=== PATIENT | male | born 1935 | race Caucasian/White ===

== ENCOUNTER → 2016-12-11 | Outpatient (CLI) | payer MEDICARE ==
[~2016-12-11] MED LIST: ALPRAZOLAM PO; ASPIRIN PO; ASPIRIN81 M2 PO; ATORVASTATIN CA10 MG PO; BENICAR PO; CATAPRES0.3 MG PO; CLONIDINE TOP; DIOVAN PO; FOLIC ACID PO; IMDUR PO; IPRAT-ALBUT 0.5-3 ML INH; ISOSORBIDE MONO60 M1 PO; KEFLEX PO; LIPITOR PO; LISINOPRIL PO; METOPROLOL TAR25 MG PO; METOPROLOL-HCTZ1 TA3 PO; NIACIN PO; NITROGYLCERIN SUBLINGUAL; NORVASC10 MG PO; PLAVIX PO; PREVACID PO; PROTONIX20 MG PO; PROZAC PO; VIT B-12 PO; VITAMIN D1000 UNIT PO; XARELTO20 MG PO; ZOFRAN ODT4 MG PO
--- NOTE | ~2016-12-11 | CT3 ---
[facility] A Service of [facility] & [facility] RADIOLOGY TEXT RESULTS PATIENT: ADAL SHAIKH JR LOCATION: [facility] : 34 UNIT #: [id number] AGE: [address]: Lake Acevedo MD SEX: M ORDER DR: [id number] [place] [id number] O MR#: [id number] Acc #: [id number] NAME: ADAL SHAIKH JR : 1935 SEX: M STUDY DATE/TIME: 12/11/2016 10:11 UNIT: [facility] ROOM: STUDY DESCRIPTION: CT Abd and Pelv WWo Cont Attending Physician: Lake Acevedo M.D. Referring Physician: Lake Acevedo M.D. Ordering Physician: Lake Acevedo M.D. Primary Care Physician: Rashid Henriquez M.D. MEDICAL IMAGING REPORT This report is preliminary unless electronic signature is present. EXAM CT abdomen and pelvis without and with contrast INDICATIONS Bladder mass on cystoscopy 1 month ago. Bilateral pelvic pain. Difficulty urinating since August 2016. PROCEDURE Unenhanced CT of the abdomen and pelvis. Postcontrast CT of the abdomen and pelvis with multiphase acquisition through the kidneys, including 5-minute delayed imaging of the abdomen and pelvis. This CT exam was performed with one or more of the following radiation dose reduction techniques: automatic exposure control, adjustment of mA and/or kV according to patient size, and iterative reconstruction. COMPARISON 08/08/2016 FINDINGS Abdomen without contrast: Included lung bases predominately clear. No radiodense gallstones. There is a 2 mm nonobstructing calculus in the right kidney. Pelvis without contrast: There is a 6 mm calculus at the right UVJ. No significant hydronephrosis. Abdomen with contrast: The kidneys enhance symmetrically. There are bilateral renal cysts, largest is in the right kidney and measures 2.5 cm. No enhancing renal mass. There is a small amount of contrast in the distal right ureter and the right ureter appears to be patent. No abnormal filling defect is seen in the left ureter. STS. [facility] A Service of [facility] & [facility] RADIOLOGY TEXT RESULTS PATIENT: ADAL SHAIKH JR LOCATION: [facility] : 34 UNIT #: [id number] AGE: [address]: Lake Acevedo MD SEX: M ORDER DR: The liver, spleen, adrenal glands, pancreas and gallbladder unremarkable. The bowel loops are nondilated. Pelvis with contrast: The bladder is decompressed. Circumferential bladder wall thickening may be related to decompression. No definite bladder mass seen. No pelvic adenopathy. No aggressive appearing bone lesion. IMPRESSION 1. The bladder is decompressed. Bladder wall thickening may be related to under distension. Cannot exclude cystitis or even malignancy given the provided history, but no discrete bladder mass is seen on this study. 2. 6 mm calculus at the right UVJ. No significant hydronephrosis. The bladder calculus is very similar to 08/08/2016 study. 3. Bilateral renal cysts. Dictated by... Kimani Sargent M.D. THIS IS AN ELECTRONICALLY VERIFIED REPORT Kimani Sargent M.D. at 12/12/2016 7:19 AM EED/rodolfo TD: 12/11/2016 23:10 JOB #: [id number] MEDICAL IMAGING REPORT Page 1 of 1
[2016-12-11 10:20] LABS: POC - CREATININE 1.14 mg/dL (0.64-1.27); POC - GFR >60.0 mL/min (>60)
== END | disposition home or self-care (01) ==
LOC: SCT 10:01
PROVIDERS: Urology
DX: N32.9 Bladder disorder, unspecified (principal); N20.1 Calculus of ureter; N21.0 Calculus in bladder; N28.1 Cyst of kidney, acquired
CPT/HCPCS: 74178; 82565; Q9967

== ENCOUNTER → 2016-12-17 | Day surgery (SDC) | payer MEDICARE ==
--- NOTE | ~2016-12-17 | OR ---
Unit #: [id number] #: [id number] Patient: ADAL SHAIKH JR [id number] [address] [address] [id number] O MR#: [id number] NAME: ADAL SHAIKH JR ROOM: Date of Procedure: 12/17/2016 Admission Date: 12/17/2016 Surgeon: Lake Acevedo M.D. : 1935 Attending Physician: Lake Acevedo M.D. Primary Care Physician: Rashid Henriquez M.D. OPERATIVE REPORT PREOPERATIVE DIAGNOSES Right ureteral stone, renal colic, history of bladder cancer. POSTOPERATIVE DIAGNOSES Right ureteral stone, renal colic, and urethral stricture. PROCEDURES PERFORMED Cystoscopy, right ureteroscopy, ureteral dilation, laser lithotripsy, basket extraction, stent placement without tether. DESCRIPTION OF PROCEDURE After informed consent, the patient was taken to the operating room, placed under general anesthetic, positioned in lithotomy. His penis and perineum were prepped and draped in the usual sterile fashion. Cystoscopy was performed and I discovered a bulbar urethral stricture. The male urethral sounds were used to gently dilate his urethra. The stricture was opened very gently with inspection of the bladder. There were no tumors, no stones, or diverticula. The entire bladder was inspected. He had normal-appearing left and right ureteral orifices. On fluoroscopy, the stone could be seen in the distal ureter. A Sensor wire was placed in the distal ureter under fluoroscopy beyond the stone. The ureteral dilating catheters were used to gently dilate the ureter. Rigid ureteroscopy was performed. The stone was encountered in the distal ureter. A laser was used and the stone was broken up into smaller pieces. A basket was used and the pieces were extracted and sent to pathology. Repeat inspection of the ureter showed no other stones. Repeat inspection of bladder showed no injury to the bladder or tumors. Repeat inspection of the urethra showed an open strictured area with no active bleeding. A 5 x 26 stent was placed under fluoroscopy with the tether removed. There was good coil in the bladder and collecting system. The plan is to send him home and return to see me as an outpatient for cystoscopy and stent removal. He tolerated the procedure well. He will not need another cystoscopy for his history of bladder cancer until maybe 04/2017. He will be discharged home and return to see me as an outpatient for the cystoscopy and stent removal. Dictated by... Haseeb Miles/[place] Unit #: [id number] #: [id number] Patient: ADAL SHAIKH JR TD: 12/18/2016 00:01 JOB #: [id number] OPERATIVE REPORT Page 1 of 1 X Lake Acevedo MD X PROCEDURE OPERATIVE NOTE
--- NOTE | ~2016-12-17 | EKG ---
PATIENT: ADAL SHAIKH UNIT #: [id number] Ventricular Rate: 56 BPM Atrial Rate: 56 BPM P-R Interval: 234 ms QRS Duration: 88 ms Q-T Interval: 418 ms QTC Calculation(Bezet): 403 ms P Thornwood: 52 degrees Calculated R Thornwood: -21 degrees Calculated T Thornwood: 47 degrees Diagnosis Line: Sinus bradycardia with 1st degree A-V block with Diagnosis Line: occasional Premature ventricular complexes Diagnosis Line: Otherwise normal ECG Diagnosis Line: When compared with ECG of 05-OCT-2016 12:07, Diagnosis Line: Premature ventricular complexes are now Present Diagnosis Line: Confirmed by SONIA BOURGEOIS MD ([id number]) on 12/18/2016 Diagnosis Line: 5:42:44 AM INTERPRETING MD: BK PHAN
[2016-12-17 12:45] LABS: BASOPHIL% 0.2 % (0-2.5); DIFF IND NO; EOSINOPHIL# 0.2 X10e3 (0-0.7); EOSINOPHIL% 1.6 % (0.0-7.0); HEMATOCRIT 43.3 % (38.0-50.0); HEMOGLOBIN 14.2 gm/dL (13.0-16.0); LYMPHOCYTE# 2.3 X10e3 (1.0-3.5); LYMPHOCYTE% 20.8 % (17.0-45.0); MEAN CELL VOLUME 96.5 FL (83-96); MEAN CORPUSCULAR HEMOGLOBIN 31.7 PG (28-34); MEAN CORPUSCULAR HGB CONC 32.8 g/dL (30-36); MEAN PLATELET VOLUME 8.1 FL (6.5-11.5); MONOCYTE# 0.9 X10e3 (0-1.0); MONOCYTE% 8.1 % (3.0-12.0); NEUTROPHIL# 7.6 X10e3 (1.5-7.1); NEUTROPHIL% 69.3 % (40-75); PLATELET COUNT 249 X10e3 (140-420); RED BLOOD COUNT 4.49 X10e (3.90-5.60); RED CELL DISTRIBUTION WIDTH 15.8 % (11.0-15.5); WHITE BLOOD COUNT 10.9 X10e3 (4.0-10.5)
[2016-12-17 13:07] LABS: BUN/CREATININE RATIO 14.16; CALCIUM SERUM 8.9 mg/dL (8.4-10.2); CREATININE SERUM 1.2 mg/dL (0.6-1.4); POTASSIUM 4.4 mmol/L (3.5-5.1)
== END | disposition home or self-care (01) ==
LOC: CSUR 11:46
PROVIDERS: Urology
DX: N20.1 Calculus of ureter (principal); N35.9 Urethral stricture, unspecified; Z85.51 Personal history of malignant neoplasm of bladder; I25.10 Atherosclerotic heart disease of native coronary artery without angina pectoris; I25.2 Old myocardial infarction; Z95.5 Presence of coronary angioplasty implant and graft; I10 Essential (primary) hypertension; J44.9 Chronic obstructive pulmonary disease, unspecified; F17.200 Nicotine dependence, unspecified, uncomplicated; Z99.81 Dependence on supplemental oxygen
CPT/HCPCS: 80048; 82365; 85025; 88300; 93005; C1758; C2617; J0690; J2405; J3010

== ENCOUNTER → 2017-01-25 | Outpatient (CLI) | payer MEDICARE ==
--- NOTE | ~2017-01-25 | US77 ---
[facility] A Service of [facility] & [facility] RADIOLOGY TEXT RESULTS PATIENT: ADAL SHAIKH JR LOCATION: [facility] : 33 UNIT #: [id number] AGE: [address]: Lake Acevedo MD SEX: M ORDER DR: [id number] [address] [address] [id number] O MR#: [id number] Acc #: [id number] NAME: ADAL SHAIKH : 1935 SEX: M STUDY DATE/TIME: 01/25/2017 8:07 UNIT: [facility] ROOM: STUDY DESCRIPTION: US Kidney Bilateral Complete Attending Physician: Lake Acevedo M.D. Referring Physician: Lake Acevedo M.D. Ordering Physician: Lake Acevedo M.D. Primary Care Physician: Rashid Henriquez M.D. MEDICAL IMAGING REPORT This report is preliminary unless electronic signature is present. EXAM Bilateral renal ultrasound 01/25/2017 HISTORY Bladder cancer. Patient states flank pain for 1 year. Referring physician's history also states urethral stricture. COMPARISON Bilateral renal ultrasound 04/09/2013. CT abdomen and pelvis without contrast 08/08/2016. FINDINGS The right kidney measures 10.5 x 5.4 x 6.7 cm. A cyst in the anterior right mid to upper renal pole measures 3.0 x 1.9 x 1.9 cm. The left kidney measures 11.0 x 4.8 x 4.7 cm. Both kidneys demonstrate cortical thinning and increased cortical echotexture suggesting changes of chronic medical renal disease, and these findings appear to have progressed since the 04/09/2013 examination. No suspicious solid renal lesion is seen on either side. No shadowing renal stone or hydronephrosis is evident on either side. Echogenic material is seen within the urinary bladder along its inferior margin measuring nearly 4.8 x 1.7 cm. This echogenic material demonstrates no discernible color flow. It is unclear whether this could represent a solid urothelial mass or even a blood clot. IMPRESSION 1. Abnormal appearance of the urinary bladder. There is echogenic [facility] A Service of [facility] & [facility] RADIOLOGY TEXT RESULTS PATIENT: ADAL SHAIKH JR LOCATION: [facility] : 34 UNIT #: [id number] AGE: [address]: Lake Acevedo MD SEX: M ORDER DR: material at the base of the urinary bladder. It is unclear whether this could represent urothelial malignancy (as suggested on the provided history), blood or hematoma within the urinary bladder lumen, or, less likely, nodular prostatic enlargement protruding into the bladder. Correlation with urine cytology and potentially cystoscopy would be recommended. 2. No hydronephrosis on either side. 3. Bilateral renal cortical thinning and increased cortical echotexture suggesting features of chronic medical renal disease, which appears to have progressed since the 2013 ultrasound. 4. Benign right renal cyst measuring maximal 3.0 cm compared to 2.1 cm on 04/09/2013. Dictated by... Sigrid Simmons M.D. THIS IS AN ELECTRONICALLY VERIFIED REPORT Sigrid Simmons M.D. at 01/29/2017 8:40 AM Paco TD: 01/25/2017 16:35 JOB #: [id number] MEDICAL IMAGING REPORT Page 1 of 1
== END | disposition home or self-care (01) ==
LOC: SGUS 07:38
DX: N20.1 Calculus of ureter (principal); N32.9 Bladder disorder, unspecified; N35.9 Urethral stricture, unspecified; N28.1 Cyst of kidney, acquired; R93.421 Abnormal radiologic findings on diagnostic imaging of right kidney; R93.422 Abnormal radiologic findings on diagnostic imaging of left kidney
CPT/HCPCS: 76775

== ENCOUNTER → 2017-05-16 | Outpatient (CLI) | payer MEDICARE ==
--- NOTE | ~2017-05-16 | US85 ---
[facility] A Service of [facility] RADIOLOGY TEXT RESULTS PATIENT: ADAL SHAIKH JR LOCATION: [facility] : 33 UNIT #: [id number] AGE: [address]: Rashid Henriquez MD SEX: M ORDER DR: [id number] [place] [id number] O MR#: [id number] Acc #: [id number] NAME: ADAL SHAIKH JR : 1935 SEX: M STUDY DATE/TIME: 05/16/2017 11:03 UNIT: [facility] ROOM: STUDY DESCRIPTION: [employer] St[employer] Attending Physician: Rashid Henriquez M.D. Referring Physician: Rashid Henriquez M.D. Ordering Physician: Rashid Henriquez M.D. Primary Care Physician: Rashid Henriquez M.D. MEDICAL IMAGING REPORT This report is preliminary unless electronic signature is present. EXAM Left lower extremity venous duplex scan, 05/16/17 HISTORY Left leg edema. History of deep vein thrombosis FINDINGS High resolution B-mode imaging and color flow Doppler analysis was performed of the deep and superficial veins of the left lower extremity. Partially occlusive thrombus is noted in the left popliteal vein. The popliteal vein is incompletely compressible. All other veins are fully compressible with no thrombus. Spontaneous and phasic flow is noted in the left common femoral, deep femoral and femoral veins. Flow is demonstrated with augmentation in the left anterior tibial, posterior tibial and peroneal veins. Flow is also present in the left great saphenous vein with augmentation. Incidental note is made of an echolucent fluid collection in the let ankle which measures 18.1 x 6.0 x 36.7 mm. IMPRESSION Partially occlusive thrombus of the left popliteal vein. These findings are consistent with chronic deep vein thrombosis which has partially recanalized. No acute superficial or deep vein thrombosis is demonstrated in the left leg. Left ankle fluid collection. Dictated by... Mango Hensley M.D. [facility] A Service of [facility] & [facility] RADIOLOGY TEXT RESULTS PATIENT: ADAL SHAIKH JR LOCATION: [facility] : 34 UNIT #: [id number] AGE: [address]: Rashid Henriquez MD SEX: M ORDER DR: THIS IS AN ELECTRONICALLY VERIFIED REPORT Mango Hensley M.D. at 05/17/2017 7:27 AM [place] TD: 05/17/2017 03:37 JOB #: [id number] MEDICAL IMAGING REPORT Page 1 of 1
== END | disposition home or self-care (01) ==
LOC: SNIV 10:58
DX: R60.0 Localized edema (principal); I82.432 Acute embolism and thrombosis of left popliteal vein; M25.472 Effusion, left ankle
CPT/HCPCS: 93971